=== PATIENT | male | born 2000 | race Caucasian/White ===

== ENCOUNTER 2022-08-03 11:47 | Emergency (ER) | payer OTHER ==
[~2022-08-03] VITALS: Ht 167.6 cm; Wt 72.6 kg
[2022-08-03 11:50] VITALS: BP_SYST 144
--- NOTE | 2022-08-03 12:50 | NUR ---
Patient to ER bed 06 to gown for evaluation. Side rails up.
--- NOTE | 2022-08-03 13:01 | NUR ---
Assumed care of pt who was brought by BLS to the ED after a fall at work caused the dislocation of his left shoulder. Pt states he is an employee of [employer] and was removing a box from the back of the truck when he slipped. In an effort to catch himself his right arm hit the railing and his shoulder dislocated. Pt states no medical hx beyond rt shoulder dislocations x3 in the last year to same arm. Pt is A&Ox4, calm and cooperative with VSS. Will continue to monitor and provide care as ordered.
[2022-08-03] MEDS ORDERED: fentaNYL CITRATE/PF 100 MCG/2 ML AMP IVP ONE (13:15)
--- NOTE | 2022-08-03 15:00 | NUR ---
ISABEL Watters at bedside examining patient.
[2022-08-03] MEDS ORDERED: PRED20TA PO (15:16)
[2022-08-03] MEDS ORDERED: IBUP-1969 PO (15:16)
[2022-08-03] MEDS ORDERED: predniSONE 20 MG TABLET PO ONE (15:30)
--- NOTE | 2022-08-03 15:46 | NUR ---
Patient given written and verbal discharge instructions and verbalizes understanding. ER Dr. Duong HYLTON discussed with patient the results and treatment provided. Patient in stable condition. ID arm band removed. IV catheter removed intact and dressing applied, no active bleeding. Rx of Ibuprofen, Prednisone given. Patient educated on pain management and to follow up with PMD. Pain Scale 4/10. Opportunity for questions provided and answered. Medication side effect fact sheet provided.
[2022-08-03 15:48] VITALS: BP_SYST 130
== END 2022-08-03 15:48 | disposition home or self-care (01) ==
LOC: SED 11:47
DX: S64.491A Injury of digital nerve of left index finger, initial encounter (principal); M24.412 Recurrent dislocation, left shoulder; R44.9 Unspecified symptoms and signs involving general sensations and perceptions; Z79.899 Other long term (current) drug therapy; W01.0XXA Fall on same level from slipping, tripping and stumbling without subsequent striking against object, initial encounter; Y93.89 Activity, other specified; Y92.89 Other specified places as the place of occurrence of the external cause; Y99.8 Other external cause status
CPT/HCPCS: 99284; 96374; 71045; 73030; J7512; J3010